=== PATIENT | male | born 1980 | race Caucasian/White ===

== ENCOUNTER 2019-05-27 11:28 | Emergency (ER) | payer BC ==
[~2019-05-27] VITALS: Ht 162.6 cm; Wt 104.3 kg
== END 2019-05-27 15:24 | disposition home or self-care (01) ==
LOC: ER 11:28
DX: R22.32 Localized swelling, mass and lump, left upper limb (principal)

== ENCOUNTER 2019-05-27 15:22 | Outpatient (CLI) | payer BC | END 2019-05-27 15:25 | disposition home or self-care (01) | LOC: RAD 15:22 | DX: M25.522 Pain in left elbow (principal) ==